=== PATIENT | female | born 1970 | race Caucasian/White ===

== ENCOUNTER 2018-07-29 10:50 | Inpatient (IN) | payer OTHER ==
[2018-07-29] MEDS ORDERED: NA CHLORIDE 0.9% 1,000 ML ONE (11:45)
[2018-07-29 12:16] LABS: Absolute Lymphocytes (CBC) 2.1 K/uL (0.7-4.9); Absolute Neutrophil 9.5 K/uL (1.8-8.0); Basophils % 0.2 % (0-1.3); Eosinophils % 0.9 % (0-4.4); Hematocrit 43.7 % (36.0-45.0); Lymphocytes % 16.8 % (15.3-44.8); MPV 8.6 fL (7.6-11.3); Monocytes % 7.5 % (3.3-12.3); RBC Red Blood Cell Count 5.13 M/uL (3.86-4.86)
[2018-07-29 12:46] LABS: Albumin 4.2 g/dL (3.4-5.0); Bilirubin Direct 0.2 mg/dL (0-0.2); Bilirubin Total 1.2 mg/dL (0.2-1.0); Potassium 4.1 mmol/L (3.5-5.1); Protein, Total 8.3 g/dL (6.4-8.2)
[2018-07-29] MEDS ORDERED: METRONIDAZOLE 500mg IVPB 500 MG/100 ML BAG IV ONE (13:08)
[2018-07-29] MEDS ORDERED: Levofloxacin 750mg IV 750 MG/150 ML BAG IV ONE (13:08)
[2018-07-29] MEDS ORDERED: ONDANSETRON 4 MG/2 ML VIAL ONE (14:16)
[2018-07-29] MEDS ORDERED: MORPHINE 2 MG/ML SYR ONE (14:16)
--- NOTE | 2018-07-29 15:22 | EDPHYS ---
Physician Documentation [facility] Name: Day Cross Age: 47 yrs Sex: Female : 1970 Arrival Date: 07/29/2018 Time: 10:52 Bed 14 Private MD: ED Physician Cricket Padilla HPI: 07/29 11:23 This 47 yrs old Female presents to ER via Ambulatory with complaints of jmm Epigastric Pain. 11:23 The patient presents with abdominal pain in the epigastric area. Onset: The jmm symptoms/episode began/occurred 3 day(s) ago. The symptoms do not radiate. This is a 47 year old female with a history of dm, htn, hlp that presents to the ED with complaints of epigastric abdominal pain beginning this past Thursday. Patient was evaluated at [facility]. Patient was evaluated by Dr. Hadley today and advised to go to the ED for further evaluation and admission. . 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 - Social history:: Smoking status: Patient uses tobacco products, denies chronic smoking, but will smoke occasionally. - Ebola Screening: : Patient negative for fever greater than or equal to 101.5 degrees Fahrenheit, and additional compatible Ebola Virus Disease symptoms. ROS: 11:23 Constitutional: Negative for fever, chills, and weight loss, Cardiovascular: Negative jmm for chest pain, palpitations, and edema, Respiratory: Negative for shortness of breath, cough, wheezing, and pleuritic chest pain. 11:23 MS/Extremity: Negative for injury and deformity, Skin: Negative for injury, rash, and discoloration, Neuro: Negative for headache, weakness, numbness, tingling, and seizure. 11:23 Abdomen/GI: Positive for abdominal pain, nausea. 11:23 All other systems are negative. Exam: 11:23 Head/Face: atraumatic. Chest/axilla: Normal chest wall appearance and motion. jmm Cardiovascular: Regular rate and rhythm. No edema appreciated Respiratory: Normal respirations, no respiratory distress appreciated 11:23 Constitutional: The patient appears in no acute distress, alert, awake. 11:23 Abdomen/GI: Inspection: abdomen appears normal, Bowel sounds: normal, Palpation: soft, moderate abdominal tenderness, in the right upper quadrant. 11:23 Back: ROM is normal. 11:23 Musculoskeletal/extremity: ROM: intact in all extremities. 11:23 Skin: Appearance: Color: normal in color. 11:23 Neuro: Orientation: is normal, Mentation: is normal, Memory: is normal. 11:23 Psych: Behavior/mood is pleasant, cooperative. Vital Signs: 11:10 BP 81 / 59; Pulse 100; Resp 18; Temp 97.8(TE); Pulse Ox 98% on R/A; Weight 74.84 kg; hj Height 5 ft. 1 in. (154.94 cm); Pain 7/10; 12:10 BP 104 / 71; Pulse 89; Resp 12; Temp 98.0(O); Pulse Ox 99% on R/A; Pain 6/10; rb1 13:09 BP 119 / 69; Pulse 91; Resp 17; Temp 98.2(O); Pulse Ox 99% on R/A; Pain 5/10; rb1 14:09 BP 109 / 67; Pulse 100; Resp 17; Temp 98.4(O); Pulse Ox 100% on R/A; Pain 7/10; rb1 15:00 BP 118 / 72; Pulse 86; Resp 16; Temp 98.1(O); Pulse Ox 100% on R/A; Pain 5/10; rb1 16:00 BP 119 / 71; Pulse 85; Resp 15; Temp 98.7(O); Pulse Ox 100% on R/A; Pain 4/10; rb1 11:10 Body Mass Index 31.18 (74.84 kg, 154.94 cm) hj MDM: 11:27 Patient medically screened. jayesh 15:20 Data reviewed: vital signs, nurses notes. Counseling: I had a detailed discussion with jayesh the patient and/or guardian regarding: the historical points, exam findings, and any diagnostic results supporting the discharge/admit diagnosis, lab results, radiology results, the need for outpatient follow up, to return to the emergency department if symptoms worsen or persist or if there are any questions or concerns that arise at home. ED course: I reviewed imaging studies from [facility] and discussed results with Dr. Arceo whom accepted admission. . 07/29 11:23 Order name: Basic Metabolic Panel [facility] 07/29 11:23 Order name: CBC with Diff [facility] 07/29 11:23 Order name: Creatinine for Radiology [facility] 07/29 11:23 Order name: Hepatic Function [facility] 07/29 11:23 Order name: Lipase; Complete Time: 13:58 [facility] 07/29 11:23 Order name: Type And Screen; Complete Time: 13:58 [facility] 07/29 11:23 Order name: Blood Culture Adult (2) [facility] 07/29 11:24 Order name: Basic Metabolic Panel; Complete Time: 13:58 [facility] 07/29 11:24 Order name: CBC with Automated Diff; Complete Time: 12:44 [facility] 07/29 11:24 Order name: Creatinine (Radiology Only); Complete Time: 12:44 [facility] 07/29 11:24 Order name: Liver (Hepatic) Function; Complete Time: 13:58 [facility] 07/29 14:40 Order name: ABO/RH no charge; Complete Time: 15:15 [facility] 07/29 16:14 Order name: Urine Dipstick--Ancillary (enter results) 07/29 16:14 Order name: Urine --Ancillary (enter results) 07/29 11:23 Order name: IV Saline Lock; Complete Time: 11:51 [facility] 07/29 11:23 Order name: Labs collected and sent; Complete Time: 11:51 [facility] 07/29 14:15 Order name: EKG Electrocardiogram; Complete Time: 15:52 [facility] 07/29 16:33 Order name: Urine --Ancillary; Complete Time: 16:55 [facility] 07/29 16:33 Order name: Urine Dipstick-Ancillary; Complete Time: 16:55 EDMS Administered Medications: 11:46 Drug: NS 0.9% 1000 ml Route: IV; Rate: 1 bolus; Site: left antecubital; rb1 12:52 Follow up: IV Status: Completed infusion rb1 13:03 Drug: Flagyl 500 mg Volume: 100 ml; Route: IVPB; Rate: 200 ml/hr; Infused Over: 30 rb1 mins; Site: left antecubital; 14:05 Follow up: Response: No adverse reaction; IV Status: Completed infusion rb1 14:10 Drug: morphine 2 mg Route: IVP; Site: left antecubital; rb1 14:25 Follow up: Response: No adverse reaction; Pain is decreased rb1 14:10 Drug: Zofran 4 mg Route: IVP; Site: left antecubital; rb1 14:25 Follow up: Response: No adverse reaction; Nausea is decreased rb1 14:13 Drug: LevaQUIN 750 mg Volume: 150 ml; Route: IVPB; Infused Over: 90 mins; Site: left rb1 antecubital; Disposition: 07/30 06:55 Co-signature as Attending Physician, Cricket Padilla MD I agree with the assessment and kdr plan of care. Disposition: 07/29/18 15:21 Hospitalization ordered by [facility] Arceo for Inpatient Admission. Preliminary diagnosis is Acute cholecystitis. - Bed requested for Telemetry/MedSurg (Inpatient). - Status is Inpatient Admission. sv - Condition is Stable. - Problem is new. - Symptoms are unchanged. UTI on Admission? No Signatures: Dispatcher [employer] EDAlma Augustine RN Vannessa Stephens RN RN dw Rittger, Kevin, MD MD kdr Mickail, Joel, PA PA jm Brett Gallegos RN RN Sharita Naranjo, RN RN rb1 Corrections: (The following items were deleted from the chart) 07/29 15:35 15:21 Hospitalization Ordered by [facility] Arceo MD for Inpatient Admission. Preliminary dw diagnosis is Acute cholecystitis. Bed requested for Telemetry/MedSurg (Inpatient). Status is Inpatient Admission. Condition is Stable. Problem is new. Symptoms are unchanged. UTI on Admission? No. [facility] 17:02 15:35 07/29/2018 15:21 Hospitalization Ordered by [facility] Arceo MD for Inpatient sv Admission. Preliminary diagnosis is Acute cholecystitis. Bed requested for Telemetry/MedSurg (Inpatient). Status is Inpatient Admission. Condition is Stable. Problem is new. Symptoms are unchanged. UTI on Admission? No. dw
--- NOTE | 2018-07-29 15:22 | ER ---
Nurse's Notes [facility] Name: aDy Cross Age: 47 yrs Sex: Female : 1970 Arrival Date: 07/29/2018 Time: 10:52 Bed 14 Private MD: Diagnosis: Acute cholecystitis Presentation: 07/29 11:07 Presenting complaint: Patient states: i was in [facility], for abdominal pain, went to see GI, and did an MRI and was told i have gallstones; went to a surgeon and was told to come here for possible surgery tomorrow; reports abd pain on the R upper abd; denies N/V;. Transition of care: patient was not received from another setting of care. Onset of symptoms was July 29, 2018. Risk Assessment: Do you want to hurt yourself or someone else? Patient reports no desire to harm self or others. Initial Sepsis Screen: Does the patient meet any 2 criteria? Yes No. Patient's initial sepsis screen is negative. Does the patient have a suspected source of infection? Yes:. Care prior to arrival: None. 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 - Social history:: Smoking status: Patient uses tobacco products, denies chronic smoking, but will smoke occasionally. - Ebola Screening: : Patient negative for fever greater than or equal to 101.5 degrees Fahrenheit, and additional compatible Ebola Virus Disease symptoms. Screenin:20 Abuse screen: Denies threats or abuse. Nutritional screening: No deficits noted. rb1 Tuberculosis screening: No symptoms or risk factors identified. Fall Risk None identified. Assessment: 11:20 General: Appears in no apparent distress. comfortable, Behavior is calm, cooperative. rb1 General: Reports chills for. Pain: Complains of pain in right upper quadrant Pain currently is 6 out of 10 on a pain scale. Pain began Thursday. Neuro: Level of Consciousness is awake, alert, obeys commands, Oriented to person, place, time, situation. Cardiovascular: Capillary refill < 3 seconds is brisk in bilateral fingers. Respiratory: Airway is patent Respiratory effort is even, unlabored, Respiratory pattern is regular, symmetrical. GI: Reports nausea. : No signs and/or symptoms were reported regarding the genitourinary system. Derm: Skin is pink, warm \T\ dry. 11:20 General: Pt. reports that Dr. Hadley's office sent her over here from his office.. rb1 12:20 Reassessment: Patient appears in no apparent distress at this time. No changes from rb1 previously documented assessment. 13:10 Reassessment: Patient appears in no apparent distress at this time. Patient and/or rb1 family updated on plan of care and expected duration. Pain level reassessed. Patient is alert, oriented x 3, equal unlabored respirations, skin warm/dry/pink. 14:09 Reassessment: Patient appears in no apparent distress at this time. No changes from rb1 previously documented assessment. Pt. is watching TV. 15:00 Reassessment: Patient appears in no apparent distress at this time. Patient and/or rb1 family updated on plan of care and expected duration. Pain level reassessed. Patient is alert, oriented x 3, equal unlabored respirations, skin warm/dry/pink. 16:00 Reassessment: Patient appears in no apparent distress at this time. No changes from rb1 previously documented assessment. Vital Signs: 11:10 BP 81 / 59; Pulse 100; Resp 18; Temp 97.8(TE); Pulse Ox 98% on R/A; Weight 74.84 kg; hj Height 5 ft. 1 in. (154.94 cm); Pain 7/10; 12:10 BP 104 / 71; Pulse 89; Resp 12; Temp 98.0(O); Pulse Ox 99% on R/A; Pain 6/10; rb1 13:09 BP 119 / 69; Pulse 91; Resp 17; Temp 98.2(O); Pulse Ox 99% on R/A; Pain 5/10; rb1 14:09 BP 109 / 67; Pulse 100; Resp 17; Temp 98.4(O); Pulse Ox 100% on R/A; Pain 7/10; rb1 15:00 BP 118 / 72; Pulse 86; Resp 16; Temp 98.1(O); Pulse Ox 100% on R/A; Pain 5/10; rb1 16:00 BP 119 / 71; Pulse 85; Resp 15; Temp 98.7(O); Pulse Ox 100% on R/A; Pain 4/10; rb1 11:10 Body Mass Index 31.18 (74.84 kg, 154.94 cm) ED Course: 10:52 Patient arrived in ED. as 11:09 Triage completed. hj 11:10 Arm band placed on left wrist. hj 11:20 Patient has correct armband on for positive identification. Placed in gown. Bed in low rb1 position. Call light in reach. Side rails up X [address] magistrate on. Pulse ox on. NIBP on. Warm blanket given. 11:23 Tres Jeter PA is PHCP. [facility] 11:23 Cricket Padilla MD is Attending Physician. [facility] 11:23 EKG done, by motorsports technician. reviewed by Tres MATTSON. at1 11:45 Inserted saline lock: 20 gauge in left antecubital area, using aseptic technique. Blood rb1 collected. 11:51 Sharita Naranjo, RN is Primary Nurse. rb1 15:21 [facility] Arceo MD is Hospitalizing Provider. jmm 16:31 Urine --Ancillary (enter results) Sent. sv 16:31 Urine Dipstick--Ancillary (enter results) Sent. sv 16:31 Basic Metabolic Panel Sent. sv 16:31 CBC with Diff Sent. sv 16:31 Creatinine for Radiology Sent. sv 16:31 Hepatic Function Sent. sv 16:43 No provider procedures requiring assistance completed. Patient admitted, IV remains in sv place. intact. Administered Medications: 11:46 Drug: NS 0.9% 1000 ml Route: IV; Rate: 1 bolus; Site: left antecubital; rb1 12:52 Follow up: IV Status: Completed infusion rb1 13:03 Drug: Flagyl 500 mg Volume: 100 ml; Route: IVPB; Rate: 200 ml/hr; Infused Over: 30 rb1 mins; Site: left antecubital; 14:05 Follow up: Response: No adverse reaction; IV Status: Completed infusion rb1 14:10 Drug: morphine 2 mg Route: IVP; Site: left antecubital; rb1 14:25 Follow up: Response: No adverse reaction; Pain is decreased rb1 14:10 Drug: Zofran 4 mg Route: IVP; Site: left antecubital; rb1 14:25 Follow up: Response: No adverse reaction; Nausea is decreased rb1 14:13 Drug: LevaQUIN 750 mg Volume: 150 ml; Route: IVPB; Infused Over: 90 mins; Site: left rb1 antecubital; Outcome: 15:21 Decision to Hospitalize by Provider. jayesh 16:43 Admitted to Med/surg accompanied by tech, via wheelchair, room 219, with chart, Report sv called to Deb SIERRA 16:43 Condition: stable 16:43 Instructed on the need for admit. 17:02 Patient left the ED. sv Signatures: Alma Uribe, RN RN sv Tres Jeter PA PA jmm Martinez, Amelia as Gonzales, Amanda, radiological metallurgist EKG Tat1 Brett Gallegos, RN RN Sharita Naranjo, RN RN rb1 Corrections: (The following items were deleted from the chart) 11:12 11:10 Pulse 100bpm; Resp 18bpm; Pulse Ox 98% RA; Temp 97.8F Temporal; 74.84 kg; Height hj 5 ft. 1 in.; BMI: 31.1; Pain 7/10; hj 11:16 11:07 Acuity: EDIS 3 hj hj 11:16 11:10 Pulse 100bpm; Resp 18bpm; Pulse Ox 98% RA; Temp 97.8F Temporal; 74.84 kg; Height 5 ft. 1 in.; BMI: 31.1; Pain 7/10; hj
[2018-07-29] MEDS ORDERED: NITROGLYCERIN 0.4 MG/TAB SL ONE (15:26)
--- NOTE | 2018-07-29 15:41 | P.HP ---
Certification for Inpatient Patient admitted to: Inpatient With expected LOS: >2 Midnights Practitioner: I am a practitioner with admitting privileges, knowledge of patient current condition, hospital course, and medical plan of care. Services: Services provided to patient in accordance with Admission requirements found in Title 42 Section 412.3 of the Code of Federal Regulations Patient History Date of Service: 07/29/18 Reason for admission: Epigastric pain History of Present Illness: This is a 47-year-old female with history of diabetes mellitus type 2, hypertension, hyperlipidemia admitted for 3 days of epigastric pain that has been progressively worsening. She complains of epigastric abdominal pain with the radiation along with nausea and subjective fevers. Patient was evaluated at [facility] along with her primary care physician. A CT scan was done , she was found to have acute cholecystitis. She was evaluated by Dr. Hadley in his clinic and was sent for admission for acute cholecystitis. In the ER, initial blood pressure was 81/59, heart rate of 100, afebrile with temperature of 97.8, 90% on room air. Her labs were remarkable for creatinine of 1.35 and a WBC count of 12.8 with a left shift. Her AST and ALT were normal , total bilirubin was elevated at 1.2. Her CT scan, done as an outpatient was remarkable for In the ER, she received morphine for pain control, Levaquin and Flagyl. At the time of my exam, she was alert oriented x3, in no acute distress and hemodynamically stable Allergies Penicillins Allergy (Verified 07/29/18 17:28) Anaphylaxis Home medications list reviewed: Yes Home Medications: Lisinopril [Prinivil*] 5 mg PO DAILY 07/29/18 Metformin ER [Glucophage ER*] 1,000 mg PO DAILY 07/29/18 - Past Medical/Surgical History Diabetic: Yes -: Hypertension -: Hyperlipidemia -: Diabetes mellitus, type 2 -: Tubal ligation - Family History Father -: Diabetes Review of Systems 10-point ROS is otherwise unremarkable Physical Examination - Vital Signs Temperature: 97.8 F Blood Pressure: 81/59 Pulse: 100 Pulse Ox (%): 98 (RA) - Physical Exam General: Alert, In no apparent distress, Oriented x3 HEENT: Atraumatic, PERRLA, Mucous membr. moist/pink, EOMI, Sclerae nonicteric Neck: Supple, 2+ carotid pulse no bruit, No LAD, Without JVD or thyroid abnormality Respiratory: Clear to auscultation bilaterally, Normal air movement Cardiovascular: Regular rate/rhythm, Normal S1 S2 Gastrointestinal: Normal bowel sounds, Tenderness, Guarding Musculoskeletal: No tenderness Integumentary: No rashes Neurological: Normal gait, Normal speech, Normal strength at 5/5 x4 extr, Normal tone, Normal affect Lymphatics: No axilla or inguinal lymphadenopathy - Studies Laboratory Data (last 24 hrs) 07/29/18 11:45: Creatinine 1.35 H 07/29/18 11:45: WBC 12.8 H, Hgb 14.4, Hct 43.7, Plt Count 355 07/29/18 11:45: Sodium 132 L, Potassium 4.1, BUN 19 H, Creatinine 1.39 H, Glucose 235 H, Total Bilirubin 1.2 H, AST 12 L, ALT 28, Alkaline Phosphatase 75 , Lipase 84 Assessment and Plan - Problems (Diagnosis) (1) Acute cholecystitis Current Visit: Yes Status: Acute Plan: Likely secondary to biliary calculi Admit to the floor. Keep NPO, IV fluids. Pain control with IV morphine IV antibiotics with Levaquin and Flagyl General surgery, Dr. Hadley consulted. Awaiting recommendations (2) SUMEET (acute kidney injury) Current Visit: Yes Status: Acute Plan: Likely secondary to volume depletion/hypotension Patient is status post bolus IV fluids in the ER. Maintenance fluids with normal saline at 100 cc/hour Continue to monitor via a.m. labs (3) Leucocytosis Current Visit: Yes Status: Acute Plan: Likely secondary to the acute cholecystitis Management as above Continue to monitor Qualifiers: Leukocytosis type: other Qualified Code(s): D72.828 - Other elevated white blood cell count (4) HLD (hyperlipidemia) Current Visit: Yes Status: Chronic Plan: Continue home medications once tolerating p.o. Qualifiers: Hyperlipidemia type: unspecified Qualified Code(s): E78.5 - Hyperlipidemia , unspecified (5) HTN (hypertension) Current Visit: Yes Status: Chronic Plan: Continue home medications was tolerating p.o.. At this time, patient with lower blood pressures. Therefore we will hold blood pressure medications. If needed, will use IV hydralazine for blood pressure control Qualifiers: Hypertension type: essential hypertension Qualified Code(s): I10 - Essential (primary) hypertension (6) Diabetes mellitus Current Visit: Yes Status: Chronic Plan: Accu-Chek and sliding scale insulin. Will continue to monitor and adjust as needed Qualifiers: Diabetes mellitus type: type 2 Diabetes mellitus alf insulin use: without alf use Diabetes mellitus complication status: with hyperglycemia Qualified Code(s): E11.65 - Type 2 diabetes mellitus with hyperglycemia (7) Obesity (BMI 30.0-34.9) Current Visit: No Status: Chronic (8) Nicotine dependence Current Visit: Yes Status: Chronic Plan: Counseled on smoking cessation, 10 min. Per patient, she has not smoked in 1 week. Qualifiers: Nicotine product type: cigarettes Substance use status: uncomplicated Qualified Code(s): F17.210 - Nicotine dependence, cigarettes, uncomplicated - Plan DVT prophylaxis: SCDs, no chemical anticoagulation at this time due to possible surgical intervention GI prophylaxis: None Diet: NPO for pending surgical intervention Disposition: Admit to the floor, keep NPO, continue IV fluids and IV antibiotics. Pain control with IV morphine. Pending surgical evaluation - Advance Directives Does patient have a Living Will: No Does patient have a Durable POA for Healthcare: No Time Spent Managing Pts Care (In Minutes): 55
[2018-07-29 16:32] LABS: Urine Blood TRACE (NEG); Urine Glucose 2+ (NEG); Urine Protein 1+ (NEG); Urine Specific Gravity 1.015 (1.005-1.030)
[2018-07-29] MEDS ORDERED: ONDANSETRON 4 MG/2 ML VIAL IV PRN (17:30)
[2018-07-29] MEDS ORDERED: INSULIN -REGULAR HUMAN 50 UNIT/0.5 ML ML SQ SCH (17:30)
[2018-07-29] MEDS ORDERED: D50W 25 GM/50 ML SYRINGE IV PRN (17:51)
[2018-07-29] MEDS ORDERED: GLUCAGON 1 MG/VIAL IM PRN (17:51)
[2018-07-29] MEDS ORDERED: Levofloxacin500mg IV 500 MG/100 ML BAG IV SCH (18:00)
[2018-07-29] MEDS: NA CHLORIDE 0.9% 1,000 ML IV SCH (18:18)
[2018-07-29] MEDS: MORPHINE 2 MG/ML SYR IV PRN ×2 (18:31→22:48)
[2018-07-29] MEDS: Levofloxacin 250mg IV 250 MG/50 ML BAG IV SCH (18:46)
[2018-07-30] MEDS: METRONIDAZOLE 500mg IVPB 500 MG/100 ML BAG IV SCH ×3 (00:09→16:24)
[2018-07-30] MEDS ORDERED: ACETAMINOPHEN 325 MG TABLET PO PRN (00:15)
[2018-07-30] MEDS ORDERED: ACETAMINOPHEN 325 MG TABLET ONE (00:27)
[2018-07-30] MEDS: NA CHLORIDE 0.9% 1,000 ML IV SCH ×2 (05:02→13:36)
[2018-07-30] MEDS: INSULIN -REGULAR HUMAN 50 UNIT/0.5 ML ML SQ SCH ×4 (06:00→18:00)
[2018-07-30 06:18] LABS: RBC Red Blood Cell Count 4.76 M/uL (3.86-4.86)
[2018-07-30 06:19] LABS: Absolute Monocytes 0.8 K/uL (0.1-1.3); Absolute Neutrophil 7.2 K/uL (1.8-8.0); Basophils % 0.2 % (0-1.3); Eosinophils % 1.9 % (0-4.4); Lymphocytes % 26.5 % (15.3-44.8); MPV 8.4 fL (7.6-11.3); Monocytes % 7.5 % (3.3-12.3)
[2018-07-30 06:26] LABS: Amylase Level 23 U/L (25-115); Lipase 72 U/L (73-393)
[2018-07-30 06:30] LABS: Albumin 3.6 g/dL (3.4-5.0); Magnesium 2.4 mg/dL (1.8-2.4); Phosphorus 2.3 mg/dL (2.5-4.9); Potassium 3.5 mmol/L (3.5-5.1); Protein, Total 7.6 g/dL (6.4-8.2)
[2018-07-30] MEDS ORDERED: KCL 20 MEQ/100 mL IVPB 20 MEQ/100 ML BAG IV SCH (07:00)
--- NOTE | 2018-07-30 07:15 | EKG ---
Test Date: 2018-07-29 Test Time: 11:23:53 Dietary Assistant: DONG MEASUREMENT RESULTS: Intervals: Rate: 98 FL: 138 QRSD: 96 QT: 350 QTc: 446 Arp: P: 57 FL: 138 QRS: 46 T: 81 INTERPRETIVE STATEMENTS: Normal sinus rhythm Inferior infarct, age undetermined Abnormal ECG No previous ECG available for comparison Electronically Signed On 07-30-18 07:11:45 CDT by Heriberto Garcia
[2018-07-30] MEDS ORDERED: POTASSIUM PHOS IN 0.9 % NACL 15 MMOL/250 ML BAG IV ONE (09:00)
[2018-07-30] MEDS ORDERED: ROCURONIUM 50 MG/5 ML VIAL IV ONE (10:40)
[2018-07-30] MEDS ORDERED: FENTANYL CITR 100 MCG/2 ML ONE (10:40)
[2018-07-30] MEDS ORDERED: ONDANSETRON 4 MG/2 ML VIAL ONE (10:40)
[2018-07-30] MEDS ORDERED: PROPOFOL 200 MG/20 ML VIAL IV ONE (10:40)
[2018-07-30] MEDS ORDERED: LIDOCAINE 2% MPF 5 ML VIAL ONE (10:40)
[2018-07-30] MEDS ORDERED: MIDAZOLAM HCL 2 MG/2 ML INJ ONE (10:40)
[2018-07-30] MEDS ORDERED: GLYCOPYRROLATE 0.2 MG/ML SYR ONE (12:06)
[2018-07-30] MEDS ORDERED: NEOSTIGMINE 1 MG/ML -10 ML VIAL ONE (12:07)
[2018-07-30] MEDS: MORPHINE 4 MG/ML SYR ONE ×2 (12:30→12:35)
--- NOTE | 2018-07-30 14:46 | P.PN ---
Subjective Date of Service: 07/30/18 Chief Complaint: Epigastric pain Subjective: Improving Patient seen and examined at bedside. No family at bedside. Chart revdiwed and case discussed with nursing staff. Patient states she is doing ok, pain has improved. Denies any nausea/vomiting Review of Systems 10-point ROS is otherwise unremarkable Physical Examination - Vital Signs Temperature: 98.5 F Blood Pressure: 129/69 Pulse: 88 Respirations: 16 Pulse Ox (%): 97 - Physical Exam General: Alert, In no apparent distress HEENT: Atraumatic, PERRLA, EOMI Neck: Supple, JVD not distended Respiratory: Clear to auscultation bilaterally, Normal air movement Cardiovascular: Regular rate/rhythm, Normal S1 S2 Gastrointestinal: Tenderness Musculoskeletal: No tenderness Integumentary: No rashes Neurological: Normal speech, Normal tone, Normal affect Lymphatics: No axilla or inguinal lymphadenopathy Assessment And Plan - Current Problems (Diagnosis) (1) Acute cholecystitis Current Visit: Yes Status: Acute Plan: Likely secondary to biliary calculi Admit to the floor. Keep NPO, IV fluids. Pain control with IV morphine IV antibiotics with Levaquin and Flagyl General surgery, Dr. Hadley consulted. Pending lap marija today (2) SUMEET (acute kidney injury) Current Visit: Yes Status: Acute Plan: Likely secondary to volume depletion/hypotension - Resolved. Patient is status post bolus IV fluids in the ER. Maintenance fluids with normal saline at 100 cc/hour Continue to monitor via a.m. labs (3) Leucocytosis Current Visit: Yes Status: Acute Plan: Likely secondary to the acute cholecystitis - improving Management as above Continue to monitor Qualifiers: Leukocytosis type: other Qualified Code(s): D72.828 - Other elevated white blood cell count (4) HLD (hyperlipidemia) Current Visit: Yes Status: Chronic Plan: Continue home medications once tolerating p.o. Qualifiers: Hyperlipidemia type: unspecified Qualified Code(s): E78.5 - Hyperlipidemia , unspecified (5) HTN (hypertension) Current Visit: Yes Status: Chronic Plan: Continue home medications was tolerating p.o.. At this time, patient with lower blood pressures. Therefore we will hold blood pressure medications. If needed, will use IV hydralazine for blood pressure control Qualifiers: Hypertension type: essential hypertension Qualified Code(s): I10 - Essential (primary) hypertension (6) Diabetes mellitus Current Visit: Yes Status: Chronic Plan: Accu-Chek and sliding scale insulin. Will continue to monitor and adjust as needed Qualifiers: Diabetes mellitus type: type 2 Diabetes mellitus inventory control specialist insulin use: without mcfp use Diabetes mellitus complication status: with hyperglycemia Qualified Code(s): E11.65 - Type 2 diabetes mellitus with hyperglycemia (7) Obesity (BMI 30.0-34.9) Current Visit: No Status: Chronic (8) Nicotine dependence Current Visit: Yes Status: Chronic Plan: Counseled on smoking cessation, 10 min. Per patient, she has not smoked in 1 week. Qualifiers: Nicotine product type: cigarettes Substance use status: uncomplicated Qualified Code(s): F17.210 - Nicotine dependence, cigarettes, uncomplicated - Plan DVT prophylaxis: SCDs, no chemical anticoagulation at this time due to possible surgical intervention GI prophylaxis: None Diet: NPO for pending surgical intervention Disposition: keep NPO, continue IV fluids and IV antibiotics. Pain control with IV morphine. Pending mary dutton today.
--- NOTE | 2018-07-30 14:53 | CON ---
Date of Consultation: 07/30/2018 Diagnoses: Epigastric right upper quadrant pain, acute cholecystitis, symptomatic cholelithiasis. History Of Present Illness: This is the case of a 47-year-old patient, who comes to us with epigastr ic right upper quadrant pain radiating to the back associated with nausea and vomiting. She was diag nosed with gallstones previously, seen in the invasive ER several days ago, was sent home, but she parra s not improved, yesterday saw Dr. Herrera, spread cutter, who diagnosed also with a stone near the neck of the gallbladder with perforation of symptoms to the point that she has to be admitted ove rnight for and then start with antibiotics, hydration, and also for cholecystectomy. She denies any dysuria, hematuria, hematochezia, or melena. Denies any recent travelling out of the country. Denie s any family member sick at home. Allergies: PENICILLIN. Past Medical History: Noninsulin dependent diabetes and hypertension. Medications: Lisinopril, metformin and she has not taken few days. Family History: Include father with diabetes. Social History: She does not smoke. She does not drink alcohol. Past Surgical History: Include tubal ligation. Review of Systems: Ten points otherwise unremarkable. Physical Examination: General: The patient is awake and alert. HEENT: Pupils are equal and reactive. Anicteric. Neck: Supple. Chest: Clear. Abdomen: Epigastric right upper quadrant pain with Beckham sign positive. Breasts: Deferred. Rectal: Deferred. Pelvic: Deferred. Extremities: Good capillary refill. Laboratory Data: Blood work shows a sodium 138, potassium 3.5, total bilirubin 1.0. Alkaline phosph atase 77. WBC count of 12.8 with hemoglobin of 14.4. UA; negative, nitrite negative. The patient has a previous an ultrasound done showing gallstones. Assessment: This is a 47-year-old patient with acute cholecystitis, symptomatic cholelithiasis, diab etes. The patient fully explained benefits, alternatives, and risks of laparoscopic, possible open c holecystectomy which include but not limited to infection, bleeding, damage to adjacent structures, a nesthesia complication, choledocholithiasis, bile leak, pancreatitis, [place], and even . She also u nderstands this may not relieve any symptoms. She might need more than one surgical intervention. S he understood, signed a consent. She wants surgery done during this admission. HUMBERTO/SEYMOUR Voice ID: [id number] Report ID: [id number]
[2018-07-30] MEDS ORDERED: POTASS/SODIUM PHOSPHATE 1 PKT POWD.PACK PO ONE (15:00)
[2018-07-30] MEDS: POTASS/SODIUM PHOSPHATE 1 PKT POWD.PACK PO SCH ×3 (15:38→17:23)
[2018-07-30] MEDS: MORPHINE 2 MG/ML SYR IV PRN ×2 (16:24→22:37)
[2018-07-30] MEDS: HYDROCODONE/APAP 7.5/325 MG TAB PO PRN (18:05)
[2018-07-30] MEDS: Levofloxacin 250mg IV 250 MG/50 ML BAG IV SCH (20:17)
[2018-07-31] MEDS: NA CHLORIDE 0.9% 1,000 ML IV SCH ×2 (00:47→09:25)
[2018-07-31] MEDS: METRONIDAZOLE 500mg IVPB 500 MG/100 ML BAG IV SCH ×2 (00:47→09:00)
[2018-07-31] MEDS: HYDROCODONE/APAP 7.5/325 MG TAB PO PRN ×2 (03:32→09:09)
[2018-07-31 06:00] LABS: Absolute Lymphocytes (CBC) 1.6 K/uL (0.7-4.9); Absolute Monocytes 0.6 K/uL (0.1-1.3); Absolute Neutrophil 4.8 K/uL (1.8-8.0); Basophils % 0.3 % (0-1.3); Eosinophils % 1.3 % (0-4.4); Hematocrit 33.6 % (36.0-45.0); Lymphocytes % 22.5 % (15.3-44.8); MPV 8.4 fL (7.6-11.3); Monocytes % 7.9 % (3.3-12.3); RBC Red Blood Cell Count 3.93 M/uL (3.86-4.86)
[2018-07-31 06:21] LABS: ALT/SGPT 33 U/L (12-78); AST/SGOT 29 U/L (15-37); Albumin 2.7 g/dL (3.4-5.0); Alkaline Phosphatase 67 U/L (45-117); BUN Blood Urea Nitrogen 8 mg/dL (7-18); Bicarbonate 27 mmol/L (21-32); Bilirubin Total 0.7 mg/dL (0.2-1.0); Glucose Level 116 mg/dL (74-106); Potassium 3.7 mmol/L (3.5-5.1); Protein, Total 5.9 g/dL (6.4-8.2); Sodium Level 141 mmol/L (136-145)
[2018-07-31] MEDS: INSULIN -REGULAR HUMAN 50 UNIT/0.5 ML ML SQ SCH ×3 (07:30→11:30)
[2018-07-31] MEDS ORDERED: POTASSIUM 25 MEQ EFFERV TAB PO ONE (09:00)
--- NOTE | 2018-07-31 11:54 | P.DS ---
Admission Date: 07/29/18 Discharge Date: 07/31/18 Disposition: ROUTINE DISCHARGE Discharge Condition: GOOD Reason for Admission: Epigastric pain Consultations: General surgery, Dr. Hadley Procedures: 07/30/2018: Laparoscopic cholecystectomy - Problems (1) Acute cholecystitis Current Visit: Yes Status: Acute (2) SUMEET (acute kidney injury) Current Visit: Yes Status: Acute (3) Leucocytosis Current Visit: Yes Status: Acute Qualifiers: Leukocytosis type: other Qualified Code(s): D72.828 - Other elevated white blood cell count (4) HLD (hyperlipidemia) Current Visit: Yes Status: Chronic Qualifiers: Hyperlipidemia type: unspecified Qualified Code(s): E78.5 - Hyperlipidemia , unspecified (5) HTN (hypertension) Current Visit: Yes Status: Chronic Qualifiers: Hypertension type: essential hypertension Qualified Code(s): I10 - Essential (primary) hypertension (6) Diabetes mellitus Current Visit: Yes Status: Chronic Qualifiers: Diabetes mellitus type: type 2 Diabetes mellitus computer terminal operator insulin use: without detention use Diabetes mellitus complication status: with hyperglycemia Qualified Code(s): E11.65 - Type 2 diabetes mellitus with hyperglycemia (7) Obesity (BMI 30.0-34.9) Current Visit: No Status: Chronic (8) Nicotine dependence Current Visit: Yes Status: Chronic Qualifiers: Nicotine product type: cigarettes Substance use status: uncomplicated Qualified Code(s): F17.210 - Nicotine dependence, cigarettes, uncomplicated Brief History of Present Illness: This is a 47-year-old female with history of diabetes mellitus type 2, hypertension, hyperlipidemia admitted for 3 days of epigastric pain that has been progressively worsening. She complains of epigastric abdominal pain with the radiation along with nausea and subjective fevers. Patient was evaluated at [facility] along with her primary care physician. A CT scan was done , she was found to have acute cholecystitis. She was evaluated by Dr. Hadley in his clinic and was sent for admission for acute cholecystitis. In the ER, initial blood pressure was 81/59, heart rate of 100, afebrile with temperature of 97.8, 90% on room air. Her labs were remarkable for creatinine of 1.35 and a WBC count of 12.8 with a left shift. Her AST and ALT were normal , total bilirubin was elevated at 1.2. Her CT scan, done as an outpatient was remarkable for In the ER, she received morphine for pain control, Levaquin and Flagyl. At the time of my exam, she was alert oriented x3, in no acute distress and hemodynamically stable Hospital Course: Patient was admitted for acute cholecystitis likely secondary to biliary calculi. She was admitted, kept NPO start IV fluids. She was started on IV antibiotics with Levaquin and Flagyl. Her pain was controlled with IV morphine. Patient underwent a lap cholecystectomy on 07/30/2018. She tolerated the procedure well. She was started on clear liquid diet, advanced to GI soft. Prior to discharge, she was pain free, ambulating without any concerns, tolerating a GI soft diet without any nausea vomiting or increasing pain. She wanted to go home. She remained hemodynamically stable, therefore she was discharged home in a safe and stable manner. She was discharged with oral antibiotics to complete a 7 day course, pain medication. She was instructed to follow up with Dr. Hadley in 1 week. Her stay was complicated by acute kidney injury, present on admission. This was likely secondary to volume depletion/hypotension. This resolved with some IV fluids. She was counseled on smoking cessation prior to discharge. Per patient, she has not smoked in 1 week, plans on continued cessation after discharge. She otherwise remained stable throughout the stay. Her diagnoses/treatment plan were explained. All questions were answered and patient verbalized understanding. Vital Signs/Physical Exam: Temp Pulse Resp BP Pulse Ox 97.7 F 94 H 16 145/68 H 96 07/31/18 08:00 07/31/18 08:00 07/31/18 08:00 07/31/18 08:00 07/31/18 08:00 General: Alert, In no apparent distress, Oriented x3 HEENT: Atraumatic, PERRLA, EOMI Neck: Supple, JVD not distended Respiratory: Clear to auscultation bilaterally, Normal air movement Cardiovascular: Regular rate/rhythm, Normal S1 S2 Gastrointestinal: Normal bowel sounds, No tenderness, Other (Incision site: Clear, dry and intact) Musculoskeletal: No tenderness Integumentary: No rashes Neurological: Normal speech, Normal tone, Normal affect Lymphatics: No axilla or inguinal lymphadenopathy Laboratory Data at Discharge: WBC 7.0 K/uL (4.3-10.9) D 07/31/18 05:35 Hgb 11.3 g/dL (12.0-15.0) L 07/31/18 05:35 Hct 33.6 % (36.0-45.0) L D 07/31/18 05:35 Plt Count 268 K/uL (152-406) D 07/31/18 05:35 Sodium 141 mmol/L (136-145) 07/31/18 05:35 Potassium 3.7 mmol/L (3.5-5.1) 07/31/18 05:35 BUN 8 mg/dL (7-18) 07/31/18 05:35 Creatinine 0.43 mg/dL (0.55-1.3) L 07/31/18 05:35 Glucose 116 mg/dL (74-106) H 07/31/18 05:35 Phosphorus 2.2 mg/dL (2.5-4.9) L 07/31/18 05:35 Magnesium 2.4 mg/dL (1.8-2.4) 07/30/18 05:44 Total Bilirubin 0.7 mg/dL (0.2-1.0) 07/31/18 05:35 AST 29 U/L (15-37) 07/31/18 05:35 ALT 33 U/L (12-78) 07/31/18 05:35 Alkaline Phosphatase 67 U/L (45-117) 07/31/18 05:35 Amylase 23 U/L (25-115) L 07/30/18 05:44 Lipase 72 U/L (73-393) L 07/30/18 05:44 Home Medications: Lisinopril [Prinivil*] 5 mg PO DAILY 07/29/18 Metformin ER [Glucophage ER*] 1,000 mg PO DAILY 07/29/18 Levofloxacin [Levaquin] 250 mg PO DAILY #5 tablet 07/31/18 Tramadol HCl [Ultram] 50 mg PO Q6HP PRN #15 tablet 07/31/18 metroNIDAZOLE [Flagyl] 500 mg PO Q8H #15 tablet 07/31/18 New Medications: Tramadol HCl [Ultram] 50 mg PO Q6HP PRN #15 tablet PRN Reason: Pain Scale 5-7 (Moderate) Levofloxacin [Levaquin] 250 mg PO DAILY #5 tablet metroNIDAZOLE [Flagyl] 500 mg PO Q8H #15 tablet Patient Discharge Instructions: Please follow up with the primary care physician in 2-3 days. Please follow up with Dr. Hadley in 2 weeks. Please return to the emergency room for worsening symptoms Diet: GI soft, as tolerated Activity: Ad rabia Followup: Brett Hadley MD [ACTIVE - CAN ADMIT] - 1 Week Time spent managing pt's care (in minutes): 55
--- NOTE | 2018-08-11 08:26 | OP ---
Date of Procedure: 07/30/2018 Surgeon: Brett Hadley MD Preoperative Diagnoses: Acute cholecystitis, symptomatic cholelithiasis. Postoperative Diagnoses: Acute cholecystitis, symptomatic cholelithiasis. Procedure: Laparoscopic cholecystectomy. Anesthesia: General plus local. Indications: This is the case of a 47-year-old patient, who comes to us with above diagnosis. We parra d an intractable right upper quadrant pain. Fully explained the benefits, alternatives, and risks of laparoscopic, possible open cholecystectomy, which include but are not limited to infection, bleedin g, damage to adjacent structures, anesthesia complication, choledocholithiasis, bile leak, pancreatit is, [place], and even . She also understands this might not relieve any symptoms and she might need more than one surgical intervention. She understood, signed a consent. Description Of Procedure: The patient was brought to the operating room, placed in supine position. Anesthesia was achieved without complication. Abdominal area was prepped and draped in a sterile fa shion. Marcaine 0.5% was injected for local anesthetic, followed by sharp incision of the skin in th e infraumbilical region. Incision was carried down to fascia, which was opened under direct vision. Peritoneum was encountered, opened under direct vision. Vicryl #1 placed on each side of the fascia . Chad trocar was carefully introduced. No bleeding was obtained. I placed 3 more trocars, 5 mm each one of them, 1 in the epigastric area and 2 in the right upper quadrant, using same technique wh ich consisted of local anesthetic, sharp incision of the skin, and introduction of the trocars under direct vision. This allowed me to put a grasper in the fundus of the gallbladder, another grasper in the infundibulum, retracted the gallbladder in the inferolateral fashion exposing the triangle of Ca lot. The cystic duct and cystic artery were clearly isolated free circumferentially and a connection between those and the gallbladder was clearly identified. I proceeded to ligate those by using at l east 3 clips proximal, 1 clip distal, ligation in middle. Same was done with the cystic artery. No bile leak. No bleeding. The gallbladder was removed from liver using Bovie cauterizer and removed f rom abdominal cavity using EndoCatch through the umbilical incision. The area was inspected once aga in. No bile leak. No bleeding. At that moment, I proceeded to remove the trocars under direct visi on. Deflated the pneumoperitoneum. Closed the fascia with #1 Vicryl. Irrigated subcutaneous tissue , closed that with 3-0 chromic and skin approximated. Sponge count and instrument counts were correc t. The patient tolerated the procedure well. The patient was sent to recovery in stable condition. HUMBERTO/SEYMOUR Voice ID: [id number] Report ID: [id number]
== END 2018-07-31 13:55 | disposition home or self-care (01) | DRG 418 ==
LOC: ER 10:50 → ERHOLD 15:19 → 2ND 16:44
PROVIDERS: ADMIT Family Medicine; ATTEND Family Medicine
PROC: 0FT44ZZ Resection of Gallbladder, Percutaneous Endoscopic Approach (ICD-10-PCS; principal; 2018-07-30 15:00)
DX: K80.00 Calculus of gallbladder with acute cholecystitis without obstruction (principal); N17.9 Acute kidney failure, unspecified; E78.5 Hyperlipidemia, unspecified; I10 Essential (primary) hypertension; E11.65 Type 2 diabetes mellitus with hyperglycemia; E66.9 Obesity, unspecified; Z68.31 Body mass index [BMI] 31.0-31.9, adult; Z88.0 Allergy status to penicillin; F17.210 Nicotine dependence, cigarettes, uncomplicated
CPT/HCPCS: 36415; 80048; 80053; 80076; 81003; 81025; 82150; 82962; 83690; 83735; 84100; 85025; 86850; 86900; 86901; 87040; 88304; 93005; 94760; 96361; 96365; 96367; 96375; 99285; J2250; J2270; J2405; J2704; J2710; J3010; J7030